=== PATIENT | male | born 1940 | race Two or more races ===

== ENCOUNTER → 2019-04-25 | Outpatient (CLI) | payer OTHER ==
[~2019-04-25] MED LIST: CRESTOR10 MG PO; IRBESARTAN-HCT1 EAC1 PO; JANUVIA100 MG PO; LANTUS100 U/ML SUBCUTANEO; METFORMIN HCL1000 MG PO; METOPROLOL SUCC50 MG PO
== END | disposition home or self-care (01) ==
LOC: TOM 08:45
DX: R93.5 Abnormal findings on diagnostic imaging of other abdominal regions, including retroperitoneum (principal); R93.2 Abnormal findings on diagnostic imaging of liver and biliary tract

== ENCOUNTER 2019-05-05 07:28 | Outpatient (CLI) | payer OTHER | END 2019-05-05 07:37 | disposition home or self-care (01) | LOC: NUCLEAR 07:28 | DX: R93.2 Abnormal findings on diagnostic imaging of liver and biliary tract (principal) | CPT/HCPCS: 78227; A9537 ==

== ENCOUNTER 2019-10-25 09:18 | Outpatient (CLI) | payer OTHER | END 2019-10-25 10:00 | disposition home or self-care (01) | LOC: MAMO-SONO 09:18 | DX: K81.1 Chronic cholecystitis (principal) ==

== ENCOUNTER 2020-11-21 17:37 | Inpatient (IN) | payer OTHER ==
[~2020-11-21] VITALS: Ht 172.7 cm; Wt 89.4 kg
== END 2020-12-18 14:05 | disposition home or self-care (01) | DRG 408 ==
LOC: ER 17:37 → MEDI 11-22 06:32 → SEC-K 11-22 06:32 → MEDI 11-22 08:54 → MEDJ 12-17 08:59
PROVIDERS: Radiology Vascular & Interventional Radiology; ADMIT Internal Medicine; ATTEND Internal Medicine
PROC: BF37ZZZ Magnetic Resonance Imaging (MRI) of Pancreas (ICD-10-PCS; 2020-11-22)
PROC: 0F798ZZ Dilation of Common Bile Duct, Via Natural or Artificial Opening Endoscopic (ICD-10-PCS; 2020-11-23)
PROC: 0FC98ZZ Extirpation of Matter from Common Bile Duct, Via Natural or Artificial Opening Endoscopic (ICD-10-PCS; 2020-11-29)
PROC: 0F798ZZ Dilation of Common Bile Duct, Via Natural or Artificial Opening Endoscopic (ICD-10-PCS; 2020-11-29)
PROC: BF37ZZZ Magnetic Resonance Imaging (MRI) of Pancreas (ICD-10-PCS; 2020-11-30)
PROC: 30233L1 Transfusion of Nonautologous Fresh Plasma into Peripheral Vein, Percutaneous Approach (ICD-10-PCS; 2020-11-30)
PROC: 30233K1 Transfusion of Nonautologous Frozen Plasma into Peripheral Vein, Percutaneous Approach (ICD-10-PCS; 2020-11-30)
PROC: BF10YZZ Fluoroscopy of Bile Ducts using Other Contrast (ICD-10-PCS; 2020-12-02)
PROC: 0F9930Z Drainage of Common Bile Duct with Drainage Device, Percutaneous Approach (ICD-10-PCS; 2020-12-02)
PROC: 0FW Hepatobiliary System and Pancreas, Revision (ICD-10-PCS; principal; 2020-12-13 17:00)
DX: K80.51 Calculus of bile duct without cholangitis or cholecystitis with obstruction (principal); D65 Disseminated intravascular coagulation [defibrination syndrome]; N17.9 Acute kidney failure, unspecified; I12.9 Hypertensive chronic kidney disease with stage 1 through stage 4 chronic kidney disease, or unspecified chronic kidney disease; E11.22 Type 2 diabetes mellitus with diabetic chronic kidney disease; G30.9 Alzheimer's disease, unspecified; F02.80 Dementia in other diseases classified elsewhere, unspecified severity, without behavioral disturbance, psychotic disturbance, mood disturbance, and anxiety; E56.1 Deficiency of vitamin K; N18.32 Chronic kidney disease, stage 3b; D63.1 Anemia in chronic kidney disease

== ENCOUNTER 2020-12-23 09:24 | Emergency (ER) | payer OTHER ==
[~2020-12-23] VITALS: Ht 175.3 cm; Wt 92.5 kg
== END 2020-12-23 14:08 | disposition home or self-care (01) ==
LOC: ER 09:24
DX: K80.50 Calculus of bile duct without cholangitis or cholecystitis without obstruction (principal); Z11.52 Encounter for screening for COVID-19

== ENCOUNTER 2021-01-12 07:09 | Outpatient (CLI) | payer OTHER | END 2021-01-12 07:18 | disposition home or self-care (01) | LOC: LAB 07:09 | PROVIDERS: ATTEND Specialist/Technologist, Other Nephrology | DX: K81.9 Cholecystitis, unspecified (principal); I10 Essential (primary) hypertension; E11.8 Type 2 diabetes mellitus with unspecified complications ==

== ENCOUNTER 2021-01-12 07:41 | Outpatient (CLI) | payer OTHER | END 2021-01-12 07:47 | disposition home or self-care (01) | LOC: SONOGRAMA 07:41 → MAMO-SONO 01-13 07:30 | PROVIDERS: ATTEND Internal Medicine | DX: K81.0 Acute cholecystitis (principal) ==

== ENCOUNTER 2021-01-18 12:07 | Emergency (ER) | payer OTHER ==
[~2021-01-18] VITALS: Ht 175.3 cm; Wt 124.7 kg
[2021-01-18] MEDS ORDERED: AMLODIPINE-OLM1 EAC2 PO (12:25)
== END 2021-01-18 22:25 | disposition home or self-care (01) ==
LOC: ER 12:07
DX: L08.89 Other specified local infections of the skin and subcutaneous tissue (principal); Z48.00 Encounter for change or removal of nonsurgical wound dressing

== ENCOUNTER 2021-02-08 07:04 | Inpatient (IN) | payer OTHER ==
[~2021-02-08] VITALS: Ht 177.8 cm; Wt 79.4 kg
[~2021-02-08 07:04] MED LIST changes: +AMLODIPINE-OLM1 EAC2 PO
[2021-02-08] MEDS ORDERED: PANTOPRAZOLE SO40 MG (07:16)
--- NOTE | 2021-02-08 07:17 | NUR ---
SE REIBE PACIENTE MASCULINO ALERTA Y ORIENTADO EN [place] ESFERAS ACOMPANADO DE ROBERSON ESPOSA QUIEN REFIERE DR ADI CHENG LE INDICO EL FENG DE DESTINI PASAR POR CORINE DE EMERGENCIAS DEBIDO A DOLOR EN EL AREA DEL ABDOMEN DEL LAODERECHO. PACIENCTE PRESENTA DRENAJE BILIAR Y PICC LINE EN EL BRAZO DERECHO. SE UBICA PACIENTE EN OBSERVAION.
--- NOTE | 2021-02-08 11:06 | NUR ---
SE ORIENTA A PTE SOBRE TRATAMIENTO ORDENADO EL CUAL REFIERE ENTENDER. SE COLECTAN MUESTRAS ORDENADAS Y SE CANALIZA PTE CON MEDIDAS ASEPTICAS. SE REALIZA EKG. PEND SONOGRAMA. SE ADMINISTRAN MEDICAMENTOS JOAN ORDEN MEDICA.
== END 2021-02-10 10:12 | disposition home or self-care (01) | DRG 315 ==
LOC: ER 07:04 → MEDI 08:32
PROVIDERS: ADMIT Internal Medicine; ATTEND Internal Medicine
PROC: 02PY33Z Removal of Infusion Device from Great Vessel, Percutaneous Approach (ICD-10-PCS; principal; 2021-02-09)
DX: T82.898A Other specified complication of vascular prosthetic devices, implants and grafts, initial encounter (principal); K80.47 Calculus of bile duct with acute and chronic cholecystitis with obstruction; I12.9 Hypertensive chronic kidney disease with stage 1 through stage 4 chronic kidney disease, or unspecified chronic kidney disease; E11.22 Type 2 diabetes mellitus with diabetic chronic kidney disease; N18.30 Chronic kidney disease, stage 3 unspecified; Z20.822 Contact with and (suspected) exposure to COVID-19

== ENCOUNTER 2022-01-16 07:53 | Inpatient (IN) | payer OTHER ==
[~2022-01-16] VITALS: Ht 177.8 cm; Wt 83.0 kg
[~2022-01-16 07:53] MED LIST changes: +PANTOPRAZOLE SO40 MG
[2022-01-16] MEDS ORDERED: ENTRESTO 24 MG1 EACH PO (08:09)
[2022-01-16] MEDS ORDERED: CARVEDILOL6.25 MG (08:14)
[2022-01-16] MEDS ORDERED: LASIX20 MG (08:14)
[2022-01-16] MEDS ORDERED: SPIRONOLACTONE25 MG (08:14)
[2022-01-16] MEDS ORDERED: SYNJARDY XR 101 EACH (08:21)
== END 2022-01-18 22:03 | disposition home or self-care (01) | DRG 291 ==
LOC: ER 07:53 → MEDI 15:27
PROVIDERS: ADMIT Internal Medicine; ATTEND Internal Medicine
PROC: 4A12X4Z Monitoring of Cardiac Electrical Activity, External Approach (ICD-10-PCS; principal; 2022-01-16)
PROC: B020ZZZ Computerized Tomography (CT Scan) of Brain (ICD-10-PCS; 2022-01-16)
PROC: B345ZZZ Ultrasonography of Bilateral Common Carotid Arteries (ICD-10-PCS; 2022-01-16)
PROC: B24BYZZ Ultrasonography of Heart with Aorta using Other Contrast (ICD-10-PCS; 2022-01-16)
DX: I13.0 Hypertensive heart and chronic kidney disease with heart failure and stage 1 through stage 4 chronic kidney disease, or unspecified chronic kidney disease (principal); I50.23 Acute on chronic systolic (congestive) heart failure; E87.1 Hypo-osmolality and hyponatremia; E87.8 Other disorders of electrolyte and fluid balance, not elsewhere classified; E11.65 Type 2 diabetes mellitus with hyperglycemia; E11.22 Type 2 diabetes mellitus with diabetic chronic kidney disease; N18.9 Chronic kidney disease, unspecified; G30.9 Alzheimer's disease, unspecified; F02.80 Dementia in other diseases classified elsewhere, unspecified severity, without behavioral disturbance, psychotic disturbance, mood disturbance, and anxiety

== ENCOUNTER 2022-03-22 12:35 | Emergency (ER) | payer OTHER ==
[~2022-03-22] VITALS: Ht 175.3 cm; Wt 68.0 kg
[~2022-03-22 12:35] MED LIST changes: +CARVEDILOL6.25 MG; +ENTRESTO 24 MG1 EACH PO; +LASIX20 MG; +SPIRONOLACTONE25 MG; +SYNJARDY XR 101 EACH
[2022-03-22] MEDS ORDERED: ELIQUIS2.5 MG PO (13:04)
[2022-03-22] MEDS ORDERED: ENTRESTO 24 MG1 EACH PO (13:05)
[2022-03-22] MEDS ORDERED: SYNJARDY XR 101 EACH PO (13:06)
== END 2022-03-22 21:14 | disposition home or self-care (01) ==
LOC: ER 12:35
DX: S00.83XA Contusion of other part of head, initial encounter (principal); W18.30XA Fall on same level, unspecified, initial encounter; Y93.9 Activity, unspecified; Y92.9 Unspecified place or not applicable; Y99.9 Unspecified external cause status; Z91.013 Allergy to seafood; E11.9 Type 2 diabetes mellitus without complications; Z79.84 Long term (current) use of oral hypoglycemic drugs; I10 Essential (primary) hypertension